=== PATIENT | male | born 1955 | race Two or more races ===

== ENCOUNTER 2016-08-26 00:20 | Emergency (ER) | payer SELFPAY ==
[~2016-08-26] VITALS: Ht 165.1 cm; Wt 75.0 kg
[2016-08-26 03:09] LABS: CLARITY URINE CLEAR (CLEAR); COLOR URINE YELLOW (YELLOW); GLUCOSE URINE NEGATIVE (NEGATIVE); KETONES URINE NEGATIVE (NEGATIVE); LEUKOCYTE ESTERASE URINE NEGATIVE (NEGATIVE); NITRITE URINE NEGATIVE (NEGATIVE); OCCULT BLOOD URINE 1+ (NEGATIVE); PROTEIN URINE NEGATIVE (NEGATIVE); SPECIFIC GRAVITY URINE 1.008 (1.005-1.030); UROBILINOGEN URINE 0.2 E.U./dL (0.2-1.0)
[2016-08-26 06:00] VITALS: BP 103/62
== END 2016-08-26 06:28 | disposition home or self-care (01) ==
LOC: ER 05:24
DX: N40.1 Benign prostatic hyperplasia with lower urinary tract symptoms (principal); R33.8 Other retention of urine; J45.909 Unspecified asthma, uncomplicated
CPT/HCPCS: 51702; 81001; 99284; Z7610; A4315

== ENCOUNTER 2016-08-29 08:28 | Emergency (ER) | payer SELFPAY ==
[~2016-08-29] VITALS: Ht 165.1 cm; Wt 75.0 kg
[2016-08-29] MEDS ORDERED: ACETAMINOPHEN WITH CODEINE 300/30MG TABLET PO ONE (09:00)
[2016-08-29 09:25] VITALS: BP 131/89
== END 2016-08-29 09:51 | disposition home or self-care (01) ==
LOC: ER 09:01
DX: T83.018A Breakdown (mechanical) of other urinary catheter, initial encounter (principal)
CPT/HCPCS: 99282